=== PATIENT | male | born 1980 | race Caucasian/White ===

== ENCOUNTER 2017-04-20 10:56 | Emergency (ER) | payer MEDICAID ==
[~2017-04-20] VITALS: Ht 182.9 cm; Wt 90.7 kg
[2017-04-20 12:19] VITALS: BP 114/75
[2017-04-20] MEDS ORDERED: LIDOCAINE 1% HCL (LOCAL ANESTH.) INJ 20ML MDV ONE (13:17)
[2017-04-20] MEDS ORDERED: LIDOCAINE 1% HCL (LOCAL ANESTH.) INJ 20ML MDV IJ ONE (13:30)
== END 2017-04-20 13:43 | disposition home or self-care (01) ==
LOC: ER 10:56
DX: S61.216A Laceration without foreign body of right little finger without damage to nail, initial encounter (principal); W26.0XXA Contact with knife, initial encounter; Y93.89 Activity, other specified; Y92.89 Other specified places as the place of occurrence of the external cause; Y99.8 Other external cause status
CPT/HCPCS: 12001; 99283; J2001